=== PATIENT | female | born 1975 | race Caucasian/White ===

== ENCOUNTER → 2017-06-25 | Outpatient (CLI) | payer MEDICARE, MEDICAID ==
[~2017-06-25] MED LIST: HYDR-3729 PO; IBUP-30 PO
--- NOTE | 2017-06-26 11:51 | Diagnostic Imaging Report ---
Bilateral screening mammogram 2D views with tomosynthesis The current study was also evaluated with a Computer Aided Detection (CAD) system. INDICATION: Screening. No current complaints stated on the questionnaire. COMPARISON: 05/26/2014. FINDINGS: The breasts are composed of heterogeneously dense parenchyma which may decrease mammographic sensitivity. There is no mass, architectural distortion, or suspicious cluster of calcifications. Allowing for technique and positional differences, no suspicious change is seen. IMPRESSION: No significant change. ACR BI-RADS Category 2: Benign findings. Result letter will be mailed to the patient. Note: At least 10% of breast cancer is not imaged by mammography. Dictated by: Dictated on workstation # [id number]
== END ==
LOC: RAD 11:32
PROVIDERS: ATTEND Nurse Practitioner Family
DX: Z12.31 Encounter for screening mammogram for malignant neoplasm of breast (principal)
CPT/HCPCS: 77067

== ENCOUNTER → 2018-01-16 | Outpatient (CLI) | payer MEDICARE, MEDICAID ==
--- NOTE | 2018-01-16 14:31 | Diagnostic Imaging Report ---
EXAMINATION: Magnetic resonance imaging of the right knee without intravenous contrast. DATE: January 16, 2018. COMPARISON: None. INDICATION: 42-year-old female, right knee pain and swelling for three weeks. TECHNIQUE: Multiplanar, multisequence [id number] MR imaging was accomplished. FINDINGS: MENISCI: The medial meniscus is intact. There is a predominantly longitudinal horizontal-type tear involving the anterior horn, body, and posterior horn of the lateral meniscus. There is no parameniscal cyst. LIGAMENTS AND TENDONS: The anterior and posterior cruciate ligaments are intact. The medial collateral ligament is intact. The iliotibial band, mid third lateral capsular ligament, fibular collateral ligament, biceps femoris tendon, and conjoined tendon are intact. The quadriceps tendon and patellar ligament are intact. JOINT: Full-thickness cartilage fissure of the lateral patellar facet on axial T2 fat-saturation sequence image 7. There is ghosting artifact at this location relating to flow within the popliteal vasculature and lack of proper selection of the direction of phase and frequency encoding directions. This finding may be artifactual. The medial and lateral compartment cartilage is intact. There is a trace knee joint effusion without intra-articular body or synovitis. BONE: There is unremarkable bone marrow signal. Specifically, negative for fracture, osteomyelitis, osteonecrosis, or marrow replacing process. BURSAE AND SOFT TISSUES: There is nonspecific mild prepatellar subcutaneous edema. IMPRESSION: 1. Longitudinal horizontal-type tear involving the anterior horn, body, and posterior horn of the lateral meniscus. No parameniscal cyst. 2. Intact medial meniscus. 3. Intact anterior and posterior cruciate ligaments. Additional ligaments and tendons are intact. 4. Questionable full-thickness cartilage fissure of the lateral patellar facet versus artifact relating to ghosting and selection of the phase and frequency encoding directions. Trace joint effusion without intra-articular body or prominent synovitis. 5. No acute fracture, bone contusion, or evidence of osteonecrosis. Dictated by: Dictated on workstation # [id number]
== END ==
LOC: RAD 13:19
PROVIDERS: ATTEND Nurse Practitioner
DX: S83.281A Other tear of lateral meniscus, current injury, right knee, initial encounter (principal)
CPT/HCPCS: 73721

== ENCOUNTER → 2018-03-26 | Outpatient (CLI) | payer MEDICARE, MEDICAID ==
[~2018-03-26] MED LIST changes: +IBUP-1773 PO
--- NOTE | 2018-03-26 16:13 | Diagnostic Imaging Report ---
PROCEDURE: US PELVIC (NON OB) TECHNIQUE: Multiple real-time grayscale images were obtained over the pelvis in various projections transabdominally. INDICATION: Dysfunctional uterine bleeding. FINDINGS: The uterus measures 10.6 x 5.8 x 5.7 cm. Endometrium is poorly visualized, therefore no measurement was obtained. No discrete myometrial mass is seen. Both ovaries are enlarged. Right ovary measures 6.3 x 4.2 x 4.9 cm, and the left ovary measures 4.8 x 7.2 x 5.4 cm. There is blood flow to both ovaries. Trace free fluid is present. IMPRESSION: 1. Poorly visualized endometrium. 2. Bilateral ovarian enlargement. No torsion is identified. Followup could be obtained. Dictated by: Dictated on workstation # [id number]
== END ==
LOC: RAD 10:18
PROVIDERS: ATTEND Family Medicine
DX: N93.8 Other specified abnormal uterine and vaginal bleeding (principal); N83.8 Other noninflammatory disorders of ovary, fallopian tube and broad ligament
CPT/HCPCS: 76856

== ENCOUNTER 2018-04-02 09:36 | Day surgery (SDC) | payer MEDICARE, MEDICAID ==
[~2018-04-02] VITALS: Ht 162.6 cm; Wt 70.5 kg
[~2018-04-02 09:36] MED LIST changes: -IBUP-1773 PO
--- OUTSIDE RECORDS SUMMARY | 2018-04-02 09:41 | XMS REPORT ---
Author Author RIGOBERTO DUNCAN Organization [facility] Address [address] [place] [address] Care Team Providers Care Attendant Lodging Facilities Name Role Phone RIGOBERTO DUNCAN Unavailable PROBLEMS Type Condition ICD9-CM Code [id number] Code Onset Dates Condition Status SNOMED Code Problem DTAP TEST V06.1 Active ALLERGIES No Known Allergies ENCOUNTERS Encounter Location Date Diagnosis [place] [id number] [place] [phone] Jun, [place] [address] [place] [id number] [place] [phone] Jun, Routine gynecological examination Z01.419 and Screening for breast cancer Z12.31 [place] [id number] [place] [phone] Dec, IMMUNIZATIONS No Known Immunizations SOCIAL HISTORY Never Assessed REASON FOR VISIT Well 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 SOMMER PT states her last PAP and ANGELA was done at in 2013 and all results were normal PLAN OF CARE Activity Details Follow Up 1 year, sooner prn Reason: VITAL SIGNS Height 65.5 in 2017-06-17 Weight 178.0 lbs 2017-06-17 Temperature 97.8 degrees Fahrenheit 2017-06-17 Heart Rate 68 bpm 2017-06-17 Respiratory Rate 18 2017-06-17 BMI 29.17 kg/m2 2017-06-17 Blood pressure systolic 122 mmHg 2017-06-17 Blood pressure diastolic 78 mmHg 2017-06-17 MEDICATIONS Medication Instructions Dosage Frequency Start Date End Date Duration Status Lisinopril 10 MG Orally Once a day 1 tablet 24h Active RESULTS No Results PROCEDURES Procedure Date Ordered Result Body Site SPECIMEN HANDLING Jun 17, 2017 No Charge Jun 17, 2017 Bacterial Vaginosis In House Jun 17, 2017 LAB NOT BILLED BY [facility] Jun 17, 2017 INSTRUCTIONS MEDICATIONS ADMINISTERED No Known Medications MEDICAL (GENERAL) HISTORY Type Description Date Medical History hypertension Surgical History Galbladder removed 2015
--- OUTSIDE RECORDS SUMMARY | 2018-04-02 09:41 | XMS REPORT ---
Author Author RIGOBERTO DUNCAN Organization [facility] Address [address] [place] [address] Care Team Providers Care Track Machine Operator Repairer Name Role Phone RIGOBERTO DUNCAN Unavailable PROBLEMS Type Condition ICD9-CM Code [id number] Code Onset Dates Condition Status SNOMED Code Problem DTAP TEST V06.1 Active ALLERGIES No Information ENCOUNTERS Encounter Location Date Diagnosis [place] [id number] [place] [phone] Jun, [place] [id number] [place] [phone] Jun, Routine gynecological examination Z01.419 and Screening for breast cancer Z12.31 [place] [id number] [place] [phone] Dec, IMMUNIZATIONS No Known Immunizations SOCIAL HISTORY Never Assessed REASON FOR VISIT Expansion Joint Builder Hx Updated PLAN OF CARE VITAL SIGNS MEDICATIONS Unknown Medications RESULTS No Results PROCEDURES No Known procedures INSTRUCTIONS MEDICATIONS ADMINISTERED No Known Medications MEDICAL (GENERAL) HISTORY Type Description Date Medical History hypertension Surgical History Galbladder removed 2015
--- OUTSIDE RECORDS SUMMARY | 2018-04-02 09:42 | XMS REPORT | Continuity of Care Document ---
Demographics Preferred Language Unknown Marital Status Unknown Protestant Affiliation Unknown Race Unknown Ethnic Group Unknown Author Author [facility] Address Unknown Phone Unavailable Allergies Active Description Code Type Severity Reaction Onset Reported/Identified Relationship to Patient Clinical Status Yes NO KNOWN DRUG ALLERGIES UNKNOWN NO KNOWN DRUG ALLERG Yes No Known Drug Allergies [id number] Drug Allergy Unknown N/A 07/27/2015 Medications There is no data. Problems Date Dx Coded Attending Type Code Diagnosis Diagnosed By 01/05/2013 V06.1 TDAP DX 06/16/2014 LUIS PATTON MD Ot 793.82 06/16/2014 LUIS PATTON MD Ot V76.12 08/01/2014 LUIS PATTON MD Ot 793.82 08/01/2014 LUIS PATTON MD Ot V76.12 07/27/2015 LUIS PATTON MD Ot 793.82 07/27/2015 LUIS PATTON MD Ot V76.12 07/27/2015 LUIS PATTON MD Ot 793.82 07/27/2015 LUIS PATTON MD Ot V76.12 07/28/2015 THA IBARRA MD Ot E87.6 HYPOKALEMIA 07/28/2015 THA IBARRA MD Ot F70 MILD INTELLECTUAL DISABILITIES 07/28/2015 THA IBARRA MD Ot K80.66 CALCULUS OF GB AND BILE DUCT W AC AND CH 07/28/2015 THA IBARRA MD Ot K85.9 ACUTE PANCREATITIS, UNSPECIFIED 07/31/2015 THA IBARRA MD Ot K80.10 CALCULUS OF GALLBLADDER W CHRONIC CHOLEC 08/01/2015 THA IBARRA MD Ot K80.50 08/01/2015 THA IBARRA MD Ot K85.1 08/21/2015 THA IBARRA MD Ot K80.50 08/21/2015 THA IBARRA MD Ot K85.1 08/29/2015 THA IBARRA MD Ot K80.50 08/29/2015 THA IBARRA MD Ot K85.1 04/10/2017 AVERY YASSINE Anderson 401.9 UNSPECIFIED ESSENTIAL HYPERTENSION 04/10/2017 ANIA VARELAHEL W I10 ESSENTIAL (PRIMARY) HYPERTENSION 04/10/2017 VARELAYASSINE W V70.0 ROUTINE GENERAL MEDICAL EXAMINATION AT A HEALTH CARE FACILITY 04/10/2017 VARELA YASSINE W Z00.01 ENCOUNTER FOR GENERAL ADULT MEDICAL EXAMINATION WITH ABNORMAL FINDINGS 04/10/2017 VARELAYASSINE W 401.9 UNSPECIFIED ESSENTIAL HYPERTENSION 04/10/2017 VARELAYASSINE W I10 ESSENTIAL (PRIMARY) HYPERTENSION 04/10/2017 VARELA YASSINE W V70.0 ROUTINE GENERAL MEDICAL EXAMINATION AT A HEALTH CARE FACILITY 04/10/2017 VARELAYASSINE GRIMM Z00.01 ENCOUNTER FOR GENERAL ADULT MEDICAL EXAMINATION WITH ABNORMAL FINDINGS 04/10/2017 VARELAYASSINE W 401.9 UNSPECIFIED ESSENTIAL HYPERTENSION 04/10/2017 VARELA YASSINE W I10 ESSENTIAL (PRIMARY) HYPERTENSION 04/10/2017 VARELAYASSINE V70.0 ROUTINE GENERAL MEDICAL EXAMINATION AT A HEALTH CARE FACILITY 04/10/2017 VARELAYASSINE GRIMM Z00.01 ENCOUNTER FOR GENERAL ADULT MEDICAL EXAMINATION WITH ABNORMAL FINDINGS 04/10/2017 VARELA YASSINE W 401.9 UNSPECIFIED ESSENTIAL HYPERTENSION 04/10/2017 VARELAYASSINE W I10 ESSENTIAL (PRIMARY) HYPERTENSION 04/10/2017 VARELAYASSINE W V70.0 ROUTINE GENERAL MEDICAL EXAMINATION AT A HEALTH CARE FACILITY 04/10/2017 VARELAYASSINE GRIMM Z00.01 ENCOUNTER FOR GENERAL ADULT MEDICAL EXAMINATION WITH ABNORMAL FINDINGS 04/10/2017 VARELAYASSINE GRIMM 401.9 UNSPECIFIED ESSENTIAL HYPERTENSION 04/10/2017 VARELAYASSINE GRIMM I10 ESSENTIAL (PRIMARY) HYPERTENSION 04/10/2017 VARELAYASSINE V70.0 ROUTINE GENERAL MEDICAL EXAMINATION AT A HEALTH CARE FACILITY 04/10/2017 VARELAYASSINE GRIMM Z00.01 ENCOUNTER FOR GENERAL ADULT MEDICAL EXAMINATION WITH ABNORMAL FINDINGS 06/18/2017 RIGOBERTO DUNCAN Ot Z12.31 ENCNTR SCREEN MAMMOGRAM FOR MALIGNANT NE 06/25/2017 LUIS PATTON MD Ot 793.82 INCONCLUSIVE MAMMOGRAM 06/25/2017 LUIS PATTON MD Ot V76.12 OT SCREEN MAMMO-MALIGN NEOPLASM OF GUNNER 06/25/2017 THA IBARRA MD, Ot K80.50 CALCULUS OF BILE DUCT W/O CHOLANGITIS OR 06/25/2017 THA IBARRA MD, Ot K85.1 BILIARY ACUTE PANCREATITIS 06/25/2017 RIGOBERTO DUNCAN REELER OPERATOR Ot Z12.31 ENCNTR SCREEN MAMMOGRAM FOR MALIGNANT NE 06/26/2017 RIGOBERTO DUNCAN L REELER OPERATOR Ot Z12.31 ENCNTR SCREEN MAMMOGRAM FOR MALIGNANT NE 07/16/2017 PERLARIGOBERTO STEWART L REELER OPERATOR Ot Z12.31 ENCNTR SCREEN MAMMOGRAM FOR MALIGNANT NE 07/25/2017 PERLARIGOBERTO STEWART L REELER OPERATOR Ot Z12.31 ENCNTR SCREEN MAMMOGRAM FOR MALIGNANT NE 10/09/2017 YASSINE VARELA A 401.0 MALIGNANT ESSENTIAL HYPERTENSION 10/09/2017 YASSINE VARELA A I10 ESSENTIAL (PRIMARY) HYPERTENSION 10/09/2017 YASSINE VARELA W 272.4 OTHER AND UNSPECIFIED HYPERLIPIDEMIA 10/09/2017 YASSINE VARELA A 401.0 MALIGNANT ESSENTIAL HYPERTENSION 10/09/2017 YASSINE VARELA W E78.5 HYPERLIPIDEMIA, UNSPECIFIED 10/09/2017 YASSINE VARELA A I10 ESSENTIAL (PRIMARY) HYPERTENSION 10/09/2017 YASSINE VARELA W 272.4 OTHER AND UNSPECIFIED HYPERLIPIDEMIA 10/09/2017 YASSINE VARELA A 401.0 MALIGNANT ESSENTIAL HYPERTENSION 10/09/2017 YASSINE VARELA W E78.5 HYPERLIPIDEMIA, UNSPECIFIED 10/09/2017 YASSINE VARELA A I10 ESSENTIAL (PRIMARY) HYPERTENSION 10/09/2017 YASSINE VARELA W 272.4 OTHER AND UNSPECIFIED HYPERLIPIDEMIA 10/09/2017 YASSINE VARELA A 401.0 MALIGNANT ESSENTIAL HYPERTENSION 10/09/2017 YASSINE VARELA W E78.5 HYPERLIPIDEMIA, UNSPECIFIED 10/09/2017 ANIA VARELAHEL A I10 ESSENTIAL (PRIMARY) HYPERTENSION 01/19/2018 PIYUSH MENG Ot S83.281A OTH TEAR OF LAT MENSC, CURRENT INJURY, R 02/05/2018 PIYUSH MENG Ot S83.281A OTH TEAR OF LAT MENSC, CURRENT INJURY, R 03/18/2018 YASSINE VARELA 626.2 EXCESSIVE OR FREQUENT MENSTRUATION 03/18/2018 VARELA, YASSINE W N92.1 EXCESSIVE AND FREQUENT MENSTRUATION WITH IRREGULAR CYCLE 03/18/2018 YASSINE VARELA W 626.2 EXCESSIVE OR FREQUENT MENSTRUATION 03/18/2018 YASSINE VARELA N92.1 EXCESSIVE AND FREQUENT MENSTRUATION WITH IRREGULAR CYCLE 03/27/2018 YASSINE VARELA MD Ot N83.8 OTH NONINFLAMMATORY DISORD OF OVARY, FAL 03/27/2018 YASSINE VARELA MD Ot N93.8 OTHER SPECIFIED ABNORMAL UTERINE AND VAG Procedures There is no data. Results Test Result Range Thyroid Stimulating Hormone - 04/10/17 15:40 TSH 1.88 mIU/mL 0.32-5.00 SUREPATH PAP AND HPV mRNA E6/E7 - 06/17/17 12:18 CLINICAL INFORMATION: NRG LMP: 06-03-17 NRG PREV. PAP: NRG PREV. BX: NRG SOURCE: Endoc[employer]ix NRG STATEMENT OF ADEQUACY: NRG INTERPRETATION/RESULT: NR SILVER MINER BLASTING: NRG HPV mRNA E6/E7, SUREPATH VIAL Not Detected NOT DETECTED CULTURE, GENITAL - 06/17/17 12:18 CULTURE, GENITAL SEE NOTE NRG Lipid Panel - 10/09/17 10:15 C/HDL 5.9 3.7-6.7 Cholesterol 285 mg/dL 100-240 HDL 48 mg/dL 30-85 LDL-Calculated 211 mg/dL 0-100 Trig 132 mg/dL 35-160 VLDL 26 mg/dL 0-42 Comprehensive Metabolic Panel - 03/18/18 15:40 Albumin 3.7 g/dL 3.6-5.1 ALP 72 U/L 35-130 ALT 9 U/L 6-45 Anion Gap 17 6-14 AST 20 U/L 2-40 BUN 10 mg/dL 5-25 Calcium 8.8 mg/dL 8.3-10.4 Chloride 102 mmol/L 95-114 CO2 21 mEq/L 22-33 Creat 0.73 mg/dL 0.50-1.50 eGFR 87 mL/min/1.73m2 >59 Globulin 2.5 g/dL 2.3-3.5 Glucose 82 mg/dL 70-110 Osmo 277 280-295 Potassium 4.8 mmol/L 3.5-5.3 Sodium 135 mmol/L 134-148 TBil 0.2 mg/dL 0.2-1.2 TP 6.2 g/dL 6.0-8.3 XM (2) LRPC - 03/31/18 10:12 CROSSMATCH COMPATIBLE X 2 Hct 23.3 % 36.0-46.0 Hgb 7.1 g/dL 13.0-15.0 TIBC - 03/31/18 10:12 Iron 14 ug/dL 70-200 Iron Saturation 5.83 % 15.00-55.00 TIBC 240 ug/dL 273-456 UIBC 192 ug/dL 200-370 Leukoreduced Packed RBC Unit Checkout - 03/31/18 11:33 LRPRBC Checkout Checked Out. Leukoreduced Packed RBC Unit Checkout - 03/31/18 11:33 LRPRBC Checkout Checked Out. CBC with Auto Diff - 03/31/18 18:10 Baso% 0.20 % 0.00-2.50 Eos 0.0 K/uL 0.0-0.7 Eos% 0.3 % 0.0-7.0 Hct 27.6 % 36.0-46.0 Hgb 9.0 g/dL 13.0-15.0 Lym 1.27 K/uL 0.60-3.40 Lym% 10.0 % 10.0-50.0 MCH 26.5 pg 27.0-31.0 MCHC 32.6 g/dL 32.0-36.0 MCV 81.2 fL 80.0-97.0 Becker% 9.8 % 0.0-12.0 MPV 8.3 fL 7.4-10.0 Shelli% 79.7 % 37.0-80.0 Plt 568 K/uL 150-400 RBC 3.40 M/uL 3.60-5.00 RDW 14.4 % 11.6-14.8 WBC 12.70 K/uL 5.00-10.00 Shelli 10.12 K/uL 2.00-6.90 Becker 1.2 K/uL 0.0-0.9 Baso 0.0 K/uL 0.0-0.2 Encounters ACCT No. Visit Date/Time Discharge Status Pt. Type Provider Facility Loc./Unit Complaint [id number] 01/05/2013 11:58:00 Document Registration [id number] 06/17/2017 10:40:00 06/17/2017 23:59:59 CLS Outpatient KENIA LAC, [facility] [id number] 06/17/2017 10:40:00 Document Registration [id number] 05/26/2014 09:57:35 ACT Document Registration [id number] 03/18/2018 17:48:00 03/18/2018 23:59:00 DIS Outpatient YASSINE VARELA [id number] 10/09/2017 12:23:00 10/09/2017 23:59:00 DIS Outpatient YASSINE VARELA [id number] 04/10/2017 18:53:00 04/10/2017 23:59:00 DIS Outpatient YASSINE VARELA [id number] 03/31/2018 10:35:00 Document Registration [id number] 03/31/2018 09:59:00 Document Registration [id number] 03/31/2018 09:59:00 Document Registration [id number] 03/26/2018 10:45:00 03/26/2018 23:59:59 CLS Outpatient YASSINE VARELA MD [facility] RAD DYSFUNCTIONAL UTERINE BLEEDING [id number] 01/16/2018 13:19:00 01/16/2018 23:59:59 CLS Outpatient PIYUSH MENG [facility] RAD DERANGEMENT OF OTHER LATERAL MENISCUS [id number] 06/25/2017 11:32:00 06/25/2017 23:59:59 CLS Outpatient RIGOBERTO DUNCAN [facility] RAD Z12.31 SCREENING FOR BREAST CANCER [id number] 07/31/2015 10:29:00 07/31/2015 17:30:00 DIS Outpatient THA IBARRA MD [facility] SDC ACUTE CHOLECYSTITIS [id number] 07/30/2015 12:16:00 07/30/2015 23:59:59 CLS Outpatient THA IBARRA MD [facility] LAB GALLBLADDER SURGERY [id number] 07/27/2015 12:38:00 07/28/2015 15:27:00 DIS Inpatient THA IBARRA MD [facility] 4TH ACUTE CHOLECYSTITIS [id number] 05/26/2014 09:56:00 05/26/2014 23:59:59 CLS Outpatient LUIS PATTON MD [facility] RAD SCREENING
[2018-04-02] MEDS ORDERED: LACTATED RINGERS 1,000 ML IV PRN (10:36)
[2018-04-02 10:51] VITALS: BP 130/76
[2018-04-02] MEDS ORDERED: D5 LR IV SOLUTION 1,000 ML IV SCH (11:25)
--- NOTE | 2018-04-02 11:25 | Progress Note-Pre Operative ---
Pre-Operative Progress Note H&P Reviewed The H&P was reviewed, patient examined and no changes noted. Date Seen by Provider: Apr 02, 2018 Time Seen by Provider: 11:25 Date H&P Reviewed: Apr 02, 2018 Time H&P Reviewed: 11:15 Pre-Operative Diagnosis: AUB, Acute blood loss anemia SAMANTHA LUCAS DO Apr 02, 2018 11:25 am
[2018-04-02] MEDS ORDERED: KETOROLAC 30 MG/ML VIAL IVP ONE (11:30)
[2018-04-02] MEDS ORDERED: ONDANSETRON 4 MG/2 ML (SDV) Z0FRAN IVP PRN (11:30)
[2018-04-02] MEDS ORDERED: BUPIVACAINE 0.5% 30 ML (SENSORCAINE) VIAL ONE (12:54)
[2018-04-02] MEDS ORDERED: SEVOFLURANE (ULTANE) 15 ML INHAL SOLN ONE (12:57)
[2018-04-02] MEDS ORDERED: LIDOCAINE PF 2% 2 ML (XYLOCAINE) VIAL ONE (12:57)
[2018-04-02] MEDS ORDERED: ONDANSETRON 4 MG/2 ML (SDV) Z0FRAN ONE (12:57)
[2018-04-02] MEDS ORDERED: MIDAZOLAM 2 MG/2 ML (VERSED) VIAL ONE (12:57)
[2018-04-02] MEDS ORDERED: proPOfol 200 MG/20 ML (DIPRIVAN) VIAL IV ONE (12:57)
[2018-04-02] MEDS ORDERED: DEXAMETHASONE 10 MG/ML (DECADRON) 1 ML VIAL ONE (12:57)
[2018-04-02] MEDS ORDERED: fentaNYL INJECTION 100 MCG/2 ML AMP ONE (12:57)
--- NOTE | 2018-04-02 12:57 | Discharge Inst-Women's Service ---
Discharge Inst-Women's Serv Depart Medication/Instructions New, Converted or Re-Newed RX: RX on Chart Consults/Follow Up Additional Follow Up: Yes Orders/Referrals Dr. Lucas in 7-10 days Activity Activity: Activity as Tolerated NO SMOKING: NO SMOKING Nothing Inside Vagina: No Douching, No Verdigre, No Tampons Diet Discharge Diet: No Restrictions Symptoms to Report to : Bleeding Excessive, Pain Increased, Fever Over 101 Degrees F, Vaginal Bleeding Increase, Questions/Concerns For Any Problems or Questions: Contact Your Physician SAMANTHA LUCAS DO Apr 02, 2018 11:33 am
[2018-04-02] MEDS ORDERED: IBUP-1773 PO (12:58)
[2018-04-02] MEDS ORDERED: BUP/EPI 0.5% 1:200,000 (SENSORCAINE) 30 ML VIAL ONE (13:21)
[2018-04-02] MEDS ORDERED: PHENYLEPHRINE 100 MCG/ML 10 ML (ANESTHESIA) SYR ONE (13:42)
[2018-04-02] MEDS ORDERED: KETOROLAC 30 MG/ML VIAL ONE (14:11)
[2018-04-02 14:13] LABS: BASOPHILS % (AUTO) 0 % (0-10); EOSINOPHILS % (AUTO) 0 % (0-10); HEMATOCRIT 25 % (35-52); HEMOGLOBIN 8.3 G/DL (11.5-16.0); LYMPHOCYTES # (AUTO) 1.8 X 10^3 (1.0-4.0); LYMPHOCYTES % (AUTO) 13 % (12-44); MEAN CORPUSCULAR HEMOGLOBIN 27 PG (25-34); MEAN CORPUSCULAR HGB CONC 33 G/DL (32-36); MEAN CORPUSCULAR VOLUME 82 FL (80-99); MEAN PLATELET VOLUME 8.6 FL (7.4-10.4); MONOCYTES # (AUTO) 1.4 X 10^3 (0.0-1.0); MONOCYTES % (AUTO) 10 % (0-12); NEUTROPHILS # (AUTO) 10.1 X 10^3 (1.8-7.8); NEUTROPHILS % (AUTO) 76 % (42-75); PLATELET COUNT 550 10^3/uL (130-400); RED BLOOD COUNT 3.06 10^6/uL (4.35-5.85); WHITE BLOOD COUNT 13.3 10^3/uL (4.3-11.0)
[2018-04-02] MEDS ORDERED: morphine INJ 10 MG/ML 1ML (SYR OR VIAL) IVP ONE (14:15)
[2018-04-02 14:45] LABS: BAND NEUTROPHILS 0 %; EOSINOPHILS % (MANUAL) 0 %; LYMPHOCYTES % (MANUAL) 16 %; MONOCYTES % (MANUAL) 3 %; NEUTROPHILS % (MANUAL) 80 %
[2018-04-02 14:46] LABS: ANISOCYTOSIS SLIGHT; BASOPHILS % (MANUAL) 1 %; ELLIPT/OVALOCYTES SLIGHT; POLYCHROMASIA SLIGHT
[2018-04-02 15:30] VITALS: BP 100/62
[2018-04-02] MEDS: ONDANSETRON 4 MG/2 ML (SDV) Z0FRAN IVP PRN ×2 (15:55→15:56)
[2018-04-02] MEDS ORDERED: NS 250 ML (IVPB) BAG IV ONE (18:15)
[2018-04-02] MEDS ORDERED: IOHEXOL 350 MG/ML 100 ML (OMNIPAQUE 350) VIAL IV ONE (18:15)
--- NOTE | 2018-04-02 18:46 | Diagnostic Imaging Report ---
PROCEDURE: CT abdomen and pelvis with and without contrast. TECHNIQUE: Precontrast acquisitions were acquired through the abdomen and pelvis. Multiple contiguous axial images were obtained through the abdomen and pelvis after the administration of intravenous contrast. INDICATION: Vaginal malignancy. FINDINGS: There are innumerable soft tissue masses in the visualized lung bases presumed to reflect severe widespread pulmonary involvement by metastatic disease. This patient has tiny pleural effusions. There are multiple low density but solid masses in the left and right hepatic lobes presumed multifocal hepatic metastases. The largest of these lesions in the right lobe measures 6.5 cm. The adrenals and pancreas are negative. The spleen is normal. The unobstructed kidneys appear normal. Some markedly abnormal appearance of the distended cervix and abnormal appearance of the uterine endometrium and adjacent proximal myometrium. This does not have typical features of fibroid disease and malignancy is suspected. If not already performed, correlate with pelvic exam. Soft tissue nodularity and thickening extends through the vaginal fornix into at least the upper vaginal canal. There are bilateral adnexal masses on the left mixed solid cystic lesion measures 7.5 x 4.8 cm and on the right 5.8 x 3.9 cm. Urinary bladder, itself, appears intrinsically unremarkable. There is a small amount of pelvic free fluid at the cul-de-sac. Rectum and sigmoid colon are unobstructed and intrinsically unremarkable. The proximal sigmoid colon drapes over the left adnexal mass and the distal sigmoid colon abuts the right adnexal mass. Soft tissue nodule anterior to the right psoas at the level of the top of the iliac crest measures 1.5 x 1.0 cm. There were no findings of omental caking. Inguinal chains unremarkable. There is an inferior left paramedian subcutaneous labial nodule, 1.4 cm. It is unclear if this is a complex sebaceous cyst versus a soft tissue mass. The ischial rectal fossa appears normal. T11 left paramedian anteroinferior endplate sclerotic changes are present. While this may be degenerative, the disc space, itself, was not substantially narrowed. A similar finding eccentric to the right at the L4 inferior endplate is noted. No definite bony metastasis, however. IMPRESSION: 1. 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 Presumed widespread hepatic and pulmonary parenchymal metastatic disease with small volume free fluid. No bowel, biliary or urinary tract obstruction. Retroperitoneal mass in the abdominopelvic junction ventral to the right psoas, presumptively metastatic. Superficial subcutaneous labial lesion, indeterminate. 2. Sclerotic changes in the lower thoracic and lower lumbar spine favoring degenerative change however sclerotic bony metastases could not be definitively excluded. Suspicion of malignancy and widespread metastases were relayed by phone to the ordering doctor at time of this dictation. Dictated by: Dictated on workstation # [id number]
--- NOTE | 2018-04-02 18:50 | Progress Note-Post Operative ---
Post-Operative Progess Note Surgeon (s)/Switch Engineer (s) Surgeon SAMANTHA LUCAS DO Switch Engineer: n/a Pre-Operative Diagnosis AUB, Acute blood loss anemia Post-Operative Diagnosis Multiple vaginal wall masses suspicious for gynecologic malignancy. Procedure & Operative Findings Date of Procedure 04/02/18 Procedure Performed/Findings Procedure : Exam under anesthesia with biopsy of cervical tissue and vaginal wall masses Patient was taken the operating room where general anesthesia was found to be adequate. She was placed in the dorsal lithotomy position prepped and draped in normal sterile fashion. Upon initially evaluating the patient opening the vaginal introitus reveals a large solid tumor of the posterior wall of the vagina, palpitation of this tumor extends around the right sidewall the vagina to the anterior vagina and can be palpated around the urethra and the base of the bladder. It is very dense, a rectal exam at the time does not reveal any rectal mucosal nodularities or irregularity suspicious for metastasis to the rectum. There is a significant amount of bleeding noted when the cervix is attempted to be inspected, by grasping the cervix with a long Allis clamp tissue is removed and bleeding is noted further. I sent that tissue as cervical tissue, and hold pressure on the site using a long ring forcep with a sponge. The dense lesion of the posterior vaginal wall is a site of my next biopsy I attempted to grasp it using a long Allis clamp however tissue comes off of the mass without difficulty with grasping it. This tissue was sent as vaginal wall lesion. This biopsy site is made hemostatic using silver nitrate. After holding pressure on the cervix for approximately 10 minutes I removed the ring forcep that has a sponge in the end, and bleeding from the cervix is significantly lightened. I monitor the patient for bleeding for the next 5 minutes which does not sit seem to be substantial there is a small amount noted. Radiation oncology was consult intraoperatively for possible external beam radiation Post procedure however at this point we will monitor the patient' s bleeding and consider that if bleeding worsens.. Anesthesia Type GETA Estimated Blood Loss Estimated blood loss (mL): min Specimens/Packing Specimens Removed vaginal wall lesion, cervical tissue SAMANTHA LUCAS DO Apr 02, 2018 18:50
--- NOTE | 2018-04-02 18:54 | Progress Note-Standard ---
Standard Progress Note Progress Notes/Assess & Plan Date Seen by a Provider: Apr 02, 2018 Time Seen by a Provider: 18:30 Progress/Assessment & Plan Patient was seen this evening with her mother and her brother present I discussed the findings of my surgery with the patient for the first time. Due to her mental capacity she does not respond however would expect however her mother is very teary-eyed and her brother is obviously affected by this news as well. I discussed within the CT findings which are suspicious for distal metastases to the lung and liver, however reassuring at this point that there is no evidence of obstruction of the bowel or urinary system. Since the procedure is been completed I've may consultations to [facility] in [place] and spoke with Dr. Mir, he agreed with biopsy however would like us to hold off with radiation if bleeding is stable. His reasoning would be for better treatment modalities and possible brachytherapy if necessary. He would only recommend external beam radiation if bleeding cannot be controlled any other way, in which case treatment would be palliative at this point. I spoke with the pathologist Dr. Bowman, her differential based upon my history was very vast. We will await pathology preliminary results tomorrow, we'll update [facility] once I have those. If patient's bleeding is stable and hemoglobin is stable in the morning I discussed with her family sending her home to rest and to be seen by Dr. Mir on Friday in [place]. All the patient's initial questions were answered that I was able to answer, other questions I have deferred on to [facility]. SAMANTHA LUCAS DO Apr 02, 2018 18:54
--- NOTE | 2018-04-02 19:28 | Diagnostic Imaging Report ---
PROCEDURE: CT chest without contrast. TECHNIQUE: Multiple contiguous axial images were obtained through the chest without the use of intravenous contrast. INDICATION: Findings in the abdomen and pelvis consistent with widespread metastatic disease. COMPARISON: No previous for direct comparison. FINDINGS: There are innumerable soft tissue masses involving all five lobes, consistent with severe multifocal pulmonary involvement by metastatic disease. Many of these masses measure greater than 2 cm with the largest 2.6 cm. Few of the smaller lesions showed some central cavitation. They are two numerous to count but when the micronodules are included, they likely exceed 100. This patient has small bilateral pleural effusions without evidence for their loculation. These measure maximal of 1 cm. There is some subjacent dependent basilar atelectasis. 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 No findings felt suggestive of hilar or mediastinal lymphadenopathy are apparent. There is no pericardial effusion. There is some mild thoracic spondylosis but I do not see findings to suggest suspicious lytic or sclerotic bone lesion or osseous metastasis. There is no thoracic fracture. No convincing supraclavicular adenopathy. The axilla appeared normal. The chest wall and breasts are unremarkable. IMPRESSION: Findings of innumerable pulmonary parenchymal metastases. Small pleural effusions. No definite adenopathy or convincing evidence for suspect osseous lesion. Multifocal hepatic metastases, better visualized at earlier contrast-assisted abdominopelvic CT. Dictated by: Dictated on workstation # [id number]
[2018-04-02 19:47] VITALS: BP 111/64
[2018-04-02] MEDS ORDERED: FLU QUADRIvalent (5+ YOA) 2018-2019 (AFLURIA) 0.5 ML IM ONE (20:15)
[2018-04-02] MEDS: ACETAMINOPHEN 500 MG TAB (TYLENOL) PO PRN (22:29)
[2018-04-02] MEDS ORDERED: HYDROmorphone 2 MG/ML VIAL (DILAUDID) IV PRN (22:30)
[2018-04-03 00:07] VITALS: BP 109/69
[2018-04-03 04:46] VITALS: BP 112/70
[2018-04-03 06:13] LABS: BASOPHILS % (AUTO) 0 % (0-10); EOSINOPHILS % (AUTO) 0 % (0-10); HEMATOCRIT 27 % (35-52); HEMOGLOBIN 8.7 G/DL (11.5-16.0); LYMPHOCYTES % (AUTO) 7 % (12-44); MEAN CORPUSCULAR HEMOGLOBIN 26 PG (25-34); MEAN CORPUSCULAR HGB CONC 33 G/DL (32-36); MEAN CORPUSCULAR VOLUME 81 FL (80-99); MEAN PLATELET VOLUME 8.8 FL (7.4-10.4); MONOCYTES # (AUTO) 1.4 X 10^3 (0.0-1.0); MONOCYTES % (AUTO) 9 % (0-12); NEUTROPHILS # (AUTO) 13.6 X 10^3 (1.8-7.8); NEUTROPHILS % (AUTO) 85 % (42-75); PLATELET COUNT 598 10^3/uL (130-400); RED BLOOD COUNT 3.29 10^6/uL (4.35-5.85); RED CELL DISTRIBUTION WIDTH 15.5 % (10.0-14.5); WHITE BLOOD COUNT 16.1 10^3/uL (4.3-11.0)
--- NOTE | 2018-04-03 07:51 | Anesthesia-General Post-Op ---
General Patient Condition Mental Status/LOC: Same as Preop Cardiovascular: Satisfactory Nausea/Vomiting: Absent Respiratory: Satisfactory Pain: Controlled Complications: Absent Post Op Complications Complications None Follow Up Care/Instructions Patient Instructions None needed. Anesthesia/Patient Condition Patient Condition Patient is doing well, no complaints, stable vital signs, no apparent adverse anesthesia problems. No complications reported per nursing. CANDELARIO JACINTO CRNA Apr 03, 2018 07:51
--- NOTE | 2018-04-03 08:27 | Progress Note-Standard ---
Standard Progress Note Progress Notes/Assess & Plan Date Seen by a Provider: Apr 03, 2018 Time Seen by a Provider: 08:00 Progress/Assessment & Plan Patient was seen this morning, plan of care discussed and bleeding precautions. Patient to be discharged. Laboratory Tests Test 04/02/18 10:35 04/02/18 13:55 04/03/18 05:35 Range/Units Urine Test NEGATIVE NEGATIVE White Blood Count 13.3 H 16.1 H 4.3-11.0 10^3/uL Red Blood Count 3.06 L 3.29 L 4.35-5.85 10^6/uL Hemoglobin 8.3 L 8.7 L 11.5-16.0 G/DL Hematocrit 25 L 27 L 35-52 % Mean Corpuscular Volume 82 81 80-99 FL Mean Corpuscular Hemoglobin 27 26 25-34 PG Mean Corpuscular Hemoglobin Concent 33 33 32-36 G/DL Red Cell Distribution Width 15.0 H 15.5 H 10.0-14.5 % Platelet Count 550 H 598 H 130-400 10^3/uL Mean Platelet Volume 8.6 8.8 7.4-10.4 FL Neutrophils (%) (Auto) 76 H 85 H 42-75 % Lymphocytes (%) (Auto) 13 7 L 12-44 % Monocytes (%) (Auto) 10 9 0-12 % Eosinophils (%) (Auto) 0 0 0-10 % Basophils (%) (Auto) 0 0 0-10 % Neutrophils # (Auto) 10.1 H 13.6 H 1.8-7.8 X 10^3 Lymphocytes # (Auto) 1.8 1.0 1.0-4.0 X 10^3 Monocytes # (Auto) 1.4 H 1.4 H 0.0-1.0 X 10^3 Eosinophils # (Auto) 0.0 0.0 0.0-0.3 10^3/uL Basophils # (Auto) 0.0 0.0 0.0-0.1 10^3/uL Neutrophils % (Manual) 80 % Lymphocytes % (Manual) 16 % Monocytes % (Manual) 3 % Eosinophils % (Manual) 0 % Basophils % (Manual) 1 % Band Neutrophils 0 % Polychromasia SLIGHT Anisocytosis SLIGHT Elliptocytes SLIGHT FENSAMANTHA LNAE DO Apr 03, 2018 8:27 am
[2018-04-03] MEDS: ACETAMINOPHEN 500 MG TAB (TYLENOL) PO PRN (08:52)
== END 2018-04-03 11:32 | disposition home or self-care (01) ==
LOC: SDC 09:36 → 4TH 15:30 → SDC 04-03 11:32
PROVIDERS: ATTEND Obstetrics & Gynecology
DX: C52 Malignant neoplasm of vagina (principal); C53.0 Malignant neoplasm of endocervix; C78.01 Secondary malignant neoplasm of right lung; C78.02 Secondary malignant neoplasm of left lung; C78.7 Secondary malignant neoplasm of liver and intrahepatic bile duct; D62 Acute posthemorrhagic anemia; I10 Essential (primary) hypertension; F79 Unspecified intellectual disabilities; Z79.899 Other long term (current) drug therapy
CPT/HCPCS: 36415; 71250; 74178; 84703; 85007; 85025; 85027; 86850; 86900; 86901; 87081